=== PATIENT | female | born 2000 | race Caucasian/White ===

== ENCOUNTER 2023-04-21 13:06 | Emergency (ER) | payer OTHER, SELFPAY ==
[2023-04-21 13:15] VITALS: BP 138/86; PULSE 96; RESP 16; TEMP 36.8; O2SAT 99; BMI 53.2
--- NOTE | 2023-04-21 13:30 | ECG_ITS ---
[facility] Test Date: 2023-04-21 Pat Name: NOE HIDALGO Department: Room: - Gender: Female Control Manager: : 2000 Requested By: Radha Chavez Order Number: [id number] Reading MD: KATIANA BRIAN Measurements Intervals [place] Rate: 107 P: 70 NH: 168 QRS: 99 QRSD: 82 T: -5 QT: 314 QTc: 376 Interpretive Statements 1102 Sinus arrhythmia 1120 Sinus tachycardia 4068 Nonspecific Twave abnormality 7102 Moderate right axis deviation 9140 abnormal rhythm ECG No previous ECG available for comparison Electronically Signed On 04-23-2023 10:49:55 EST by KATIANA BRIAN
--- NOTE | 2023-04-21 13:45 | PC.NURSE ---
Pt reports feeling like if she it would be OK. Now pt states is suicidal with a plan and it's only a matter of time. Pt reports being out of psych meds for a couple of months.
[2023-04-21 13:53] LABS: HCG Qualitative Urine* NEGATIVE (NEGATIVE)
[2023-04-21 13:59] LABS: Bilirubin Urine NEGATIVE (NEGATIVE); Blood Urine LARGE (NEGATIVE); Clarity Urine CLEAR (CLEAR); Color Urine YELLOW (YELLOW); Glucose Urine UA NEGATIVE (NEGATIVE); Ketones Urine TRACE mg/dL (NEGATIVE); Leukocyte Esterase Urine NEGATIVE (NEGATIVE); Nitrite Urine NEGATIVE (NEGATIVE); Protein Urine TRACE mg/dL (NEG/TRACE); Specific Gravity Urine >=1.030 (1.005-1.025); Urobilinogen Urine 0.2 EU/dL (0.2-1.0); pH Urine 5.5 (5.0-9.0)
[2023-04-21 14:01] LABS: Urine Microscopic Indicated YES
[2023-04-21 14:02] LABS: Amphetamine Screen Urine NEGATIVE (NEGATIVE); Barbiturates Screen Urine NEGATIVE (NEGATIVE); Benzodiazepines Screen Urine NEGATIVE (NEGATIVE); Cannabinoid Screen Urine NEGATIVE (NEGATIVE); Cocaine Screen Urine NEGATIVE (NEGATIVE); Methadone Screen Urine NEGATIVE (NEGATIVE); Methamphetamines Screen Urine NEGATIVE (NEGATIVE); Opiate Screen Urine NEGATIVE (NEGATIVE); Oxycodone Screen Urine NEGATIVE (NEGATIVE); Phencyclidine Screen Urine NEGATIVE (NEGATIVE); Tricyclic Antidepressant Urine NEGATIVE (NEGATIVE)
[2023-04-21 14:03] LABS: Buprenorphine Screen Urine NEGATIVE (NEGATIVE)
[2023-04-21 14:06] LABS: Basophils Percent Auto 0.3 % (0.2-2.0); Eosinophils Absolute Auto 0.1 10^3/uL (0.0-0.7); Eosinophils Percent Auto 0.7 % (0.9-7.0); Hematocrit 44.1 % (36.0-48.0); Hemoglobin 14.4 g/dL (12.0-16.0); Immature Granulocytes Abs Auto 0.02 10^3/uL (0.00-0.03); Immature Granulocytes Pct Auto 0.3 % (0.0-0.5); Lymphocytes Absolute Auto 2.5 10^3/uL (1.2-3.8); Lymphocytes Percent Auto 33.2 % (20.5-60.0); Mean Corpuscular HGB Conc 32.7 g/dL (29.9-35.2); Mean Corpuscular Hemoglobin 27.3 pg (26.7-34.0); Mean Corpuscular Volume 83.7 fL (81.0-99.0); Mean Platelet Volume 9.6 fL (9.5-13.5); Monocytes Absolute Auto 0.5 10^3/uL (0.3-0.8); Monocytes Percent Auto 6.4 % (1.7-12.0); Neutrophils Absolute Auto 4.5 10^3/uL (1.4-6.5); Neutrophils Percent Auto 59.1 % (43.0-75.0); Platelet Count 291 10^3/uL (150-450); Red Blood Count 5.27 10^6/uL (4.20-5.40); Red Cell Distribution Width 13.6 % (11.0-15.0); White Blood Count 7.6 10^3/uL (4.0-11.0)
[2023-04-21 14:10] LABS: Bacteria Urine MODERATE #/HPF (NONE SEEN); Cast Seen? NONE SEEN #/LPF (NONE SEEN); Crystals Seen? None Seen #/HPF (None Seen); Mucus Urine NONE SEEN (NONE SEEN); RBC Urine 20-50 #/HPF (0-2); Squamous Epithelial Cell Urine FEW #/LPF (NONE/RARE); Urine Culture Indicated YES; WBC Urine 0-2 #/HPF (NONE SEEN)
[2023-04-21 14:22] LABS: SARS-CoV-2 Ag NEGATIVE (NEGATIVE)
[2023-04-21 14:26] LABS: Ethanol <3 mg/dL; Salicylate <2.8 mg/dL (<=19.9)
[2023-04-21 14:28] LABS: Alanine Aminotransferase 47 U/L (14-59); Albumin Globulin Ratio 0.8; Albumin Level 3.6 g/dL (3.4-5.0); Alkaline Phosphatase 107 U/L (46-116); Anion Gap 12.9; Aspartate Amino Transferase 18 U/L (15-37); Bilirubin Total 0.5 mg/dL (0.2-1.0); Calcium 9.8 mg/dL (8.5-10.1); Carbon Dioxide 27.1 mmol/L (21.0-32.0); Chloride 104 mmol/L (98-107); Estimated GFR (African America >60 (>=60); Estimated GFR (Non-African Ame >60 (>=60); Globulin 4.5 g/dL; Glucose 99 mg/dL (74-106); Sodium 140 mmol/L (136-145); Total Protein 8.1 g/dL (6.4-8.2)
[2023-04-21 14:35] LABS: Acetaminophen <2.0 ug/mL (10.0-30.0)
[2023-04-21 14:43] VITALS: BP 122/92; PULSE 87; RESP 18; O2SAT 100
--- NOTE | 2023-04-21 15:25 | ED.PSYCH1 ---
Documented by User: Hermelinda Thapa 04/21/23 18:22 HPI - Psych General Chief Complaint: Psychiatric Symptoms Stated Complaint: suicidal ideations Time Seen by Provider: 04/21/23 13:25 Source: Reports patient Mode of arrival: ambulance Limitations: Reports no limitations History of Present Illness HPI Narrative: 23-year-old female presents with chief complaint of suicidal ideation. Patient was brought in by squad. Mom is here at bedside. Patient states she's had a history of bipolar and major depressive disorder. She's been out of her medications for the past two months as her insurance would not cover new medications her physician prescribed. Patient was on samples from the office and when they ran out of her insurance would not cover. She states she's never been hospitalized for depression or suicidal ideation. She did tell squad that she was suicidal and had plan to shoot herself. There are no guns around the home. Patient is calm and cooperative this time. States she's had the symptoms for the last 1-2 weeks.Patient denies drinking any alcohol or taking any medications today.She does have 4 healing abrasions to the right upper forearm from where she was scratching herself , superficial Related Data Home Medications Medication Instructions Recorded Confirmed cholecalciferol (vitamin D3) 125 10,000 unit PO QAM 04/21/23 04/21/23 mcg (5,000 unit) capsule lisinopril 10 mg tablet 10 mg PO QAM 04/21/23 04/21/23 pantoprazole 40 mg tablet,delayed 40 mg PO QAM 04/21/23 04/21/23 release sertraline 50 mg tablet 50 mg PO QAM 04/21/23 04/21/23 Allergies Allergy/AdvReac Type Severity Reaction Status Date / Time No Known Drug Allergies Allergy Verified 04/21/23 14:06 Review of Systems ROS Narrative All Systems are negative except as noted/marked.All systems reviewed and otherwise negative [facility] Medical History (Updated 04/21/23 @ 17:17 by Hermelinda Thapa) GERD (gastroesophageal reflux disease) ?K21.9 - Gastro-esophageal reflux disease without esophagitis (ICD-10) Hypertension ?I10 - Essential (primary) hypertension (ICD-10) Suicidal ideation ?R45.851 - Suicidal ideations (ICD-10) Depressed bipolar disorder ?F31.9 - Bipolar disorder, unspecified (ICD-10) Social History Smoking status: Never smoker Exam Narrative Exam Narrative: Nurses note and vital signs reviewed and patient is not hypoxic. General: The patient appears well and in no apparent distress. answering all questions calmly and is coooperative Skin: Warm, dry, no pallor noted. There is no rash noted. Head: Normocephalic, atraumatic Eye: Normal conjunctiva, no drainage, EOMI. PERRL Ears, Nose, Mouth, and Throat: oral mucosa is moist. Nares patent. Mouth without vesicles. Ear canals patent. Tm's without Erythema Cardiovascular: Regular Rate and Rhythm Respiratory: Patient is in no distress, no accessory muscle use, lungs are clear to auscultation, no wheezing, rales or rhonchi Back: non-tender, no CVA tenderness bilaterally to percussion. Musculoskeletal: Patient has four abrasions noted to the right forearm with scabbing noted,The patient has no evidence of calf tenderness, no pitting edema, symmetrical pulses noted bilaterally Neurological: A&O x4, normal speech Psychiatric: Cooperative,, suicidal ideation Constitutional Vital Signs, click to edit/add: Last Vital Signs Temp 98.3 F 04/21/23 13:15 Pulse 87 04/21/23 14:43 Resp 18 04/21/23 14:43 BP 122/92 H 04/21/23 14:43 Pulse Ox 100 04/21/23 14:43 O2 Del Method Room Air 04/21/23 13:15 Course Vital Signs Vital signs: Vital Signs Temperature 98.3 F 04/21/23 13:15 Pulse Rate 96 H 04/21/23 13:15 Respiratory Rate 16 04/21/23 13:15 Blood Pressure 138/86 04/21/23 13:15 Pulse Oximetry 99 04/21/23 13:15 Oxygen Delivery Method Room Air 04/21/23 13:15 Temperature 98.3 F 04/21/23 13:15 Pulse Rate 87 04/21/23 14:43 Respiratory Rate 18 04/21/23 14:43 Blood Pressure 122/92 H 04/21/23 14:43 Pulse Oximetry 100 04/21/23 14:43 Oxygen Delivery Method Room Air 04/21/23 13:15 MDM - Psych MDM Narrative Medical decision making narrative: 23-year-old female presents with chief complaint of suicidal ideation. Patient was brought in by squad. Mom is here at bedside. Patient states she's had a history of bipolar and major depressive disorder. She's been out of her medications for the past two months as her insurance would not cover new medications her physician prescribed. Patient was on samples from the office and when they ran out of her insurance would not cover. She states she's never been hospitalized for depression or suicidal ideation. She did tell davidad that she was suicidal and had plan to shoot herself. There are no guns around the home. Patient is calm and cooperative this time. States she's had the symptoms for the last 1-2 weeks.Patient denies drinking any alcohol or taking any medications today.She does have 4 healing abrasions to the right upper forearm from where she was scratching herself , superficial Patient had presented here to the emergency room with suicidal ideation. Patient is a history of major depression disorder and bipolar. She's been unable to take medications as insurance has not been covering her meds. Patient has been calm and cooperative here in emergency room. CBC BMP and EKG were all within normal limits. Patient has been medically cleared. [facility] counseling Is counseled and interviewed patient. Mom is at bedside. Patient, mom and counseling have agreed to a safe plan.Patient was given safety care plan information as well as hot line number. Reasons to return to emergency room were discussed. Patient and mom agree with plan of care. Patient is safe to be discharged home with mom Differential Diagnosis Differential diagnosis: Likely suicidal ideation, bipolar disorder and depression Medical Records Attestation: I reviewed the patient's medical records. Lab Data Attestation: I reviewed the patient's lab results. Labs: Lab Results 04/21/23 04/21/23 04/21/23 Range/Units 13:30 13:49 14:03 WBC 7.6 (4.0-11.0) 10^3/uL RBC 5.27 (4.20-5.40) 10^6/uL Hgb 14.4 (12.0-16.0) g/dL Hct 44.1 (36.0-48.0) % MCV 83.7 (81.0-99.0) fL MCH 27.3 (26.7-34.0) pg MCHC 32.7 (29.9-35.2) g/dL RDW 13.6 (11.0-15.0) % Plt Count 291 (150-450) 10^3/uL MPV 9.6 (9.5-13.5) fL Neut % (Auto) 59.1 (43.0-75.0) % Lymph % (Auto) 33.2 (20.5-60.0) % Crawford % (Auto) 6.4 (1.7-12.0) % Eos % (Auto) 0.7 L (0.9-7.0) % Baso % (Auto) 0.3 (0.2-2.0) % Neut # (Auto) 4.5 (1.4-6.5) 10^3/uL Lymph # (Auto) 2.5 (1.2-3.8) 10^3/uL Crawford # (Auto) 0.5 (0.3-0.8) 10^3/uL Eos # (Auto) 0.1 (0.0-0.7) 10^3/uL Baso # (Auto) 0.0 (0.0-0.1) 10^3/uL Abs Immat Gran (auto) 0.02 (0.00-0.03) 10^3/uL Imm/Tot Granulo (auto) 0.3 (0.0-0.5) % Sodium 140 (136-145) mmol/L Potassium 4.0 (3.5-5.1) mmol/L Chloride 104 (98-107) mmol/L Carbon Dioxide 27.1 (21.0-32.0) mmol/L Anion Gap 12.9 BUN 9.0 (7.0-18.0) mg/dL Creatinine 0.82 (0.55-1.02) mg/dL Est GFR ( Amer) >60 (>=60) Est GFR (Non-Af Amer) >60 (>=60) BUN/Creatinine Ratio 11.0 Glucose 99 (74-106) mg/dL Calcium 9.8 (8.5-10.1) mg/dL Total Bilirubin 0.5 (0.2-1.0) mg/dL AST 18 (15-37) U/L ALT 47 (14-59) U/L Alkaline Phosphatase 107 (46-116) U/L Total Protein 8.1 (6.4-8.2) g/dL Albumin 3.6 (3.4-5.0) g/dL Globulin 4.5 g/dL Albumin/Globulin Ratio 0.8 Urine Color Yellow (YELLOW) Urine Clarity Clear (CLEAR) Urine pH 5.5 (5.0-9.0) Ur Specific [place] >=1.030 A (1.005-1.025) Urine Protein Trace (NEG/TRACE) mg/dL Urine Glucose (UA) Negative (NEGATIVE) mg/dL Urine Ketones Trace A (NEGATIVE) mg/dL Urine Occult Blood Large A (NEGATIVE) Urine Nitrite Negative (NEGATIVE) Urine Bilirubin Negative (NEGATIVE) Urine Urobilinogen 0.2 (0.2-1.0) EU/dL Ur Leukocyte Esterase Negative (NEGATIVE) Urine RBC 20-50 A (0-2) #/HPF Urine WBC 0-2 A (NONE SEEN) #/HPF Ur Squamous Epith Cells Few A (NONE/RARE) #/LPF Urine Crystals None seen (None Seen) #/HPF Urine Bacteria Moderate A (NONE SEEN) #/HPF Urine Casts None seen (NONE SEEN) #/LPF Urine Mucus None seen (NONE SEEN) Ur Culture Indicated? Yes Urine HCG, Qual Negative (NEGATIVE) Salicylates <2.8 (<=19.9) mg/dL Urine Opiates Screen Negative (NEGATIVE) Ur Buprenorphine Scrn Negative (NEGATIVE) Ur Oxycodone Screen Negative (NEGATIVE) Urine Methadone Screen Negative (NEGATIVE) Acetaminophen <2.0 L (10.0-30.0) ug/mL Ur Barbiturates Screen Negative (NEGATIVE) U Tricyclic Antidepress Negative (NEGATIVE) Ur Phencyclidine Scrn Negative (NEGATIVE) Ur Amphetamines Screen Negative (NEGATIVE) U Methamphetamines Scrn Negative (NEGATIVE) U Benzodiazepines Scrn Negative (NEGATIVE) Urine Cocaine Screen Negative (NEGATIVE) U Cannabinoids Screen Negative (NEGATIVE) Ethanol Quant <3 mg/dL SARS-CoV-2 (PCR) Negative (NEGATIVE) SARS-CoV-2 RNA (ISAEL) Not detected (NOT DETECTE) ECG Data Interpretation: 1332 EKG shows a sinus rhythm with a rate of 107 bpm, MO interval 168 ms, QRS duration 82 ms, no STEMI Discharge Plan Discharge Chief Complaint: Psychiatric Symptoms Clinical Impression: Depression Patient Disposition: Home, Self-Care Time of Disposition Decision: 17:17 Condition: Good Mode of Transportation: Private Vehicle Prescriptions / Home Meds: No Action cholecalciferol (vitamin D3) 125 mcg (5,000 unit) capsule 10,000 unit PO QAM lisinopril 10 mg tablet 10 mg PO QAM pantoprazole 40 mg tablet,delayed release (DR/EC) 40 mg PO QAM sertraline 50 mg tablet 50 mg PO QAM Instructions: Depression (ED) Additional Instructions: Home on a safety plan patient and parent have agreed on. Patient to use website and look into counseling as discussed. Take this information to PCP appt. May 02 so patient can be set up with counseling. Follow up with ODALIS Crockett on the phone MondayMay 02 at the [facility], [phone]. Return to ER for any problems or concerns Stand Alone Forms: Portal Instructions Referrals: FAROOQ HUSAIN [Primary Care Provider] - 1 week Discharge Date/Time: 04/21/23 17:31 Documented by User: Stoney Diaz MD 04/21/23 20:19 HPI - Psych General Chief Complaint: Psychiatric Symptoms Stated Complaint: suicidal ideations Time Seen by Provider: 04/21/23 13:25 Related Data Home Medications Medication Instructions Recorded Confirmed cholecalciferol (vitamin D3) 125 10,000 unit PO QAM 04/21/23 04/21/23 mcg (5,000 unit) capsule lisinopril 10 mg tablet 10 mg PO QAM 04/21/23 04/21/23 pantoprazole 40 mg tablet,delayed 40 mg PO QAM 04/21/23 04/21/23 release sertraline 50 mg tablet 50 mg PO QAM 04/21/23 04/21/23 Allergies Allergy/AdvReac Type Severity Reaction Status Date / Time No Known Drug Allergies Allergy Verified 04/21/23 14:06 [facility] Medical History (Updated 04/21/23 @ 17:17 by Hermelinda Thapa) GERD (gastroesophageal reflux disease) ?K21.9 - Gastro-esophageal reflux disease without esophagitis (ICD-10) Hypertension ?I10 - Essential (primary) hypertension (ICD-10) Suicidal ideation ?R45.851 - Suicidal ideations (ICD-10) Depressed bipolar disorder ?F31.9 - Bipolar disorder, unspecified (ICD-10) Social History Smoking status: Never smoker Exam Constitutional Vital Signs, click to edit/add: Last Vital Signs Temp 98.3 F 04/21/23 13:15 Pulse 87 04/21/23 14:43 Resp 18 04/21/23 14:43 BP 122/92 H 04/21/23 14:43 Pulse Ox 100 04/21/23 14:43 O2 Del Method Room Air 04/21/23 13:15 Course Vital Signs Vital signs: Vital Signs Temperature 98.3 F 04/21/23 13:15 Pulse Rate 96 H 04/21/23 13:15 Respiratory Rate 16 04/21/23 13:15 Blood Pressure 138/86 04/21/23 13:15 Pulse Oximetry 99 04/21/23 13:15 Oxygen Delivery Method Room Air 04/21/23 13:15 Temperature 98.3 F 04/21/23 13:15 Pulse Rate 87 04/21/23 14:43 Respiratory Rate 18 04/21/23 14:43 Blood Pressure 122/92 H 04/21/23 14:43 Pulse Oximetry 100 04/21/23 14:43 Oxygen Delivery Method Room Air 04/21/23 13:15 MDM - Psych MDM Narrative Medical decision making narrative: 23-year-old female presents with chief complaint of suicidal ideation. Patient was brought in by rudy. Mom is here at bedside. Patient states she's had a history of bipolar and major depressive disorder. She's been out of her medications for the past two months as her insurance would not cover new medications her physician prescribed. Patient was on samples from the office and when they ran out of her insurance would not cover. She states she's never been hospitalized for depression or suicidal ideation. She did tell rudy that she was suicidal and had plan to shoot herself. There are no guns around the home. Patient is calm and cooperative this time. States she's had the symptoms for the last 1-2 weeks.Patient denies drinking any alcohol or taking any medications today.She does have 4 healing abrasions to the right upper forearm from where she was scratching herself , superficial Patient had presented here to the emergency room with suicidal ideation. Patient is a history of major depression disorder and bipolar. She's been unable to take medications as insurance has not been covering her meds. Patient has been calm and cooperative here in emergency room. CBC BMP and EKG were all within normal limits. Patient has been medically cleared. [facility] counseling Is counseled and interviewed patient. Mom is at bedside. Patient, mom and counseling have agreed to a safe plan.Patient was given safety care plan information as well as hot line number. Reasons to return to emergency room were discussed. Patient and mom agree with plan of care. Patient is safe to be discharged home with mom I, Dr Diaz, have reviewed the above progress note and course of action in the ER; agree with the above. I have personally seen and evaluated this patient, gone over history and physical, and discussed disposition and treatment plan with the patient. I spoke to the patient and mother at discharge. Patient is not suicidal, homicidal, mother feels comfortable taking the patient home. Mother and father will be with patient all weekend. Patient will look into a counselor on Monday her insurance Will work with and call for an appointment. Patient has an appointment with her PCP after 's. Patient is to have an emergency appointment on Monday with [facility] reevaluation and follow-up. Patient and mother agree with the safety plan in place. I agree with the plan as well. Patient and mother thankful for care. Patient will use topical antibiotic ointment to help with healing abrasions to her right arm. Critical care time 35 minutes exclusive from separate billable procedures that were performed. The following was considered in the determination of critical care but not limited to the level of medical decision making, intensive cardiac and/or respiratory monitoring, frequent vital sign monitoring, evaluation of laboratory studies, evaluation of radiographic studies, oxygen monitoring, and constant monitoring and speaking to family at bedside Lab Data Labs: Lab Results 04/21/23 04/21/23 04/21/23 Range/Units 13:30 13:49 14:03 WBC 7.6 (4.0-11.0) 10^3/uL RBC 5.27 (4.20-5.40) 10^6/uL Hgb 14.4 (12.0-16.0) g/dL Hct 44.1 (36.0-48.0) % MCV 83.7 (81.0-99.0) fL MCH 27.3 (26.7-34.0) pg MCHC 32.7 (29.9-35.2) g/dL RDW 13.6 (11.0-15.0) % Plt Count 291 (150-450) 10^3/uL MPV 9.6 (9.5-13.5) fL Neut % (Auto) 59.1 (43.0-75.0) % Lymph % (Auto) 33.2 (20.5-60.0) % [place] % (Auto) 6.4 (1.7-12.0) % Eos % (Auto) 0.7 L (0.9-7.0) % Baso % (Auto) 0.3 (0.2-2.0) % Neut # (Auto) 4.5 (1.4-6.5) 10^3/uL Lymph # (Auto) 2.5 (1.2-3.8) 10^3/uL [place] # (Auto) 0.5 (0.3-0.8) 10^3/uL Eos # (Auto) 0.1 (0.0-0.7) 10^3/uL Baso # (Auto) 0.0 (0.0-0.1) 10^3/uL Abs Immat Gran (auto) 0.02 (0.00-0.03) 10^3/uL Imm/Tot Granulo (auto) 0.3 (0.0-0.5) % Sodium 140 (136-145) mmol/L Potassium 4.0 (3.5-5.1) mmol/L Chloride 104 (98-107) mmol/L Carbon Dioxide 27.1 (21.0-32.0) mmol/L Anion Gap 12.9 BUN 9.0 (7.0-18.0) mg/dL Creatinine 0.82 (0.55-1.02) mg/dL Est GFR ( Amer) >60 (>=60) Est GFR (Non-Af Amer) >60 (>=60) BUN/Creatinine Ratio 11.0 Glucose 99 (74-106) mg/dL Calcium 9.8 (8.5-10.1) mg/dL Total Bilirubin 0.5 (0.2-1.0) mg/dL AST 18 (15-37) U/L ALT 47 (14-59) U/L Alkaline Phosphatase 107 (46-116) U/L Total Protein 8.1 (6.4-8.2) g/dL Albumin 3.6 (3.4-5.0) g/dL Globulin 4.5 g/dL Albumin/Globulin Ratio 0.8 Urine Color Yellow (YELLOW) Urine Clarity Clear (CLEAR) Urine pH 5.5 (5.0-9.0) Ur Specific [place] >=1.030 A (1.005-1.025) Urine Protein Trace (NEG/TRACE) mg/dL Urine Glucose (UA) Negative (NEGATIVE) mg/dL Urine Ketones Trace A (NEGATIVE) mg/dL Urine Occult Blood Large A (NEGATIVE) Urine Nitrite Negative (NEGATIVE) Urine Bilirubin Negative (NEGATIVE) Urine Urobilinogen 0.2 (0.2-1.0) EU/dL Ur Leukocyte Esterase Negative (NEGATIVE) Urine RBC 20-50 A (0-2) #/HPF Urine WBC 0-2 A (NONE SEEN) #/HPF Ur Squamous Epith Cells Few A (NONE/RARE) #/LPF Urine Crystals None seen (None Seen) #/HPF Urine Bacteria Moderate A (NONE SEEN) #/HPF Urine Casts None seen (NONE SEEN) #/LPF Urine Mucus None seen (NONE SEEN) Ur Culture Indicated? Yes Urine HCG, Qual Negative (NEGATIVE) Salicylates <2.8 (<=19.9) mg/dL Urine Opiates Screen Negative (NEGATIVE) Ur Buprenorphine Scrn Negative (NEGATIVE) Ur Oxycodone Screen Negative (NEGATIVE) Urine Methadone Screen Negative (NEGATIVE) Acetaminophen <2.0 L (10.0-30.0) ug/mL Ur Barbiturates Screen Negative (NEGATIVE) U Tricyclic Antidepress Negative (NEGATIVE) Ur Phencyclidine Scrn Negative (NEGATIVE) Ur Amphetamines Screen Negative (NEGATIVE) U Methamphetamines Scrn Negative (NEGATIVE) U Benzodiazepines Scrn Negative (NEGATIVE) Urine Cocaine Screen Negative (NEGATIVE) U Cannabinoids Screen Negative (NEGATIVE) Ethanol Quant <3 mg/dL SARS-CoV-2 (PCR) Negative (NEGATIVE) SARS-CoV-2 RNA (ISAEL) Not detected (NOT DETECTE) Discharge Plan Discharge Chief Complaint: Psychiatric Symptoms Clinical Impression: Depression Patient Disposition: Home, Self-Care Time of Disposition Decision: 17:17 Condition: Good Mode of Transportation: Private Vehicle Prescriptions / Home Meds: No Action cholecalciferol (vitamin D3) 125 mcg (5,000 unit) capsule 10,000 unit PO QAM lisinopril 10 mg tablet 10 mg PO QAM pantoprazole 40 mg tablet,delayed release (DR/EC) 40 mg PO QAM sertraline 50 mg tablet 50 mg PO QAM Instructions: Depression (ED) Additional Instructions: Home on a safety plan patient and parent have agreed on. Patient to use website and look into counseling as discussed. Take this information to PCP appt. May 02 so patient can be set up with counseling. Follow up with ODALIS Crockett on the phone MondayMay 02 at the [facility], [phone]. Return to ER for any problems or concerns Stand Alone Forms: Portal Instructions Referrals: FAROOQ HUSAIN [Primary Care Provider] - 1 week Discharge Date/Time: 04/21/23 17:31
[2023-04-21 16:20] LABS: SARS-CoV-2 NAA NOT DETECTED (NOT DETECTE)
== END 2023-04-21 17:31 | disposition home or self-care (01) ==
PROVIDERS: Physician Assistant; Emergency Provider Emergency Medicine; PCP Nurse Practitioner
DX: F31.9 Bipolar disorder, unspecified (principal); K21.9 Gastro-esophageal reflux disease without esophagitis; I10 Essential (primary) hypertension
CPT/HCPCS: 36415; 80053; 80179; 80307; 80320; 80329; 81001; 84703; 85025; 87086; 87635; 87811; 93005; 99285